=== PATIENT | female | born 1965 | race Caucasian/White ===

== ENCOUNTER → 2019-11-13 13:21 | Outpatient (BNVA) | payer MEDICAID, SELFPAY | PROVIDERS: Family Provider Family Medicine; PCP Family Medicine; Visit Provider Internal Medicine | DX: Z11.59 Encounter for screening for other viral diseases (principal) | CPT/HCPCS: 87635 ==

== ENCOUNTER 2019-11-17 07:57 | Day surgery (SDC) | payer MEDICAID, SELFPAY ==
[2019-11-15 07:23] VITALS: BMI 20.2
[2019-11-17 08:13] VITALS: BP 97/63; PULSE 66; RESP 18; TEMP 36.4; O2SAT 99
[2019-11-17] MEDS: sodium chloride 0.9% 1,000 ML 30 ML IV (08:29)
--- NOTE | 2019-11-17 08:49 | ANES.PREANE2 ---
Pre-Anesthetic Assessment Pre-Anesthetic Assessment: Height/Weight: Height 1.6 m Weight 51.71 kg Temp Pulse Resp BP Pulse Ox 97.6 F 66 18 97/63 99 11/17/19 08:13 11/17/19 08:13 11/17/19 08:13 11/17/19 08:13 11/17/19 08:13 Preop Diagnosis: reece Proposed Procedure: Operation Date: 11/17/19 09:30 Proposed Procedures p EGD/colon [id number] K52.9(Not Applicable) - Mingo Mims MD s Colonoscopy(Not Applicable) - Mingo Mims MD Was Beta Yesika taken within 24 hours: N/A Last intake: Intake Last Liquid Date 11/16/19 Last Liquid Time 22:00 Last Solid Date 11/15/19 Last Solid Time 22:00 Social: Social History: No alcohol and No tobacco Exam: Pre-Anes Outpt Exam: alert, oriented x 3, clear to auscultation bilaterally and regular rate & rhythm Airway: Submandibular: WNL Cervical ROM: WNL MP: 1 History/ROS: No significant complaints Pulmonary: Pulmonary: None reported CV/HEM: CV/HEM: None reported : : None reported Hepatic: Hepatic: None reported GI: Comments: Chronic diarrhea and abdominal pain Metabolic: Metabolic: None reported Musc/skel: Musc/skel: OA/DJD Neuropsych: Neuropsych: None reported Anesthetic Plan: ASA status: 2 Anesthesia: MAC Meds/Allergies Current Medications: Current Medications Generic Name Dose Route Start Last Admin Trade Name Freq PRN Reason Stop Dose Admin Sodium Chloride 1,000 mls @ 30 ml s/hr 11/17/19 07:30 11/17/19 08:29 Sodium Chloride 0.9% IV 30 mls/hr .Q24H FREEDOM Administration PFSH Anesthesia PFSH: Family History (Updated 10/26/19 @ 11:47 by Lexis Quiñones, [place]) Father Diabetes Heart disease Mother Diabetes Father Heart disease Mother Heart disease Social History (Updated 11/07/19 @ 10:06 by Lexis Quiñones CT) Smoking and tobacco status: never smoked Alcohol intake: never History of recent travel: No Data Anesthesia Cardiac Studies: No Data to Display
--- NOTE | 2019-11-17 09:59 | W.PM.OPSUD ---
Surgery/Procedure H&P Update DATE OF PROCEDURE: November 17, 2019 DATE H&P PERFORMED: 11/07/19 PREOP DIAGNOSIS: reece PLANNED PROCEDURE: Operation Date: 11/17/19 09:30 Proposed Procedures p EGD/colon [id number] K52.9(Not Applicable) - Mingo Mims MD s Colonoscopy(Not Applicable) - Mingo Mims MD
[2019-11-17 10:28] VITALS: BP 116/89; PULSE 82; RESP 18; TEMP 36.1; O2SAT 96
--- NOTE | 2019-11-17 10:31 | ANE.PACU2 ---
Inpatient post-anesthesia follow up: Airway intact: Yes Vital signs: Temperature 97.6 F Pulse Rate 66 Respiratory Rate 18 Blood Pressure 97/63 Pulse Oximetry 99 Oxygen Delivery Me thod Room Air Oxygen Flow Rate Fraction of Inspir ed Oxygen Hydration adequate: Yes Nausea and vomiting: No Pain level: 1 Mental status: Baseline
[2019-11-17 10:49] VITALS: BP 95/65; PULSE 70; RESP 18; O2SAT 99
[2019-11-20 05:47] LABS: H. Pylori / CLO Test Positive
== END 2019-11-17 11:05 | disposition home or self-care (01) ==
PROVIDERS: PCP Family Medicine; Visit Provider Internal Medicine
PROC: 0DJ08ZZ Inspection of Upper Intestinal Tract, Via Natural or Artificial Opening Endoscopic (ICD-10-PCS; CPT 43235; principal; 2019-11-17 09:30)
PROC: 0DJD8ZZ Inspection of Lower Intestinal Tract, Via Natural or Artificial Opening Endoscopic (ICD-10-PCS; CPT 45378; 2019-11-17 09:30)
DX: K52.9 Noninfective gastroenteritis and colitis, unspecified (principal); K29.70 Gastritis, unspecified, without bleeding; M19.90 Unspecified osteoarthritis, unspecified site
CPT/HCPCS: 12345; 43239; 45378; 82274; 83630; 87077; 87493; 87506; J2704; J7030